=== PATIENT | female | born 1995 | race Caucasian/White ===

== ENCOUNTER 2016-07-09 02:17 | Emergency (ER) | payer BC | END 2016-07-09 05:00 | disposition left against medical advice (07) | LOC: ER1 02:17 | DX: Z53.21 Procedure and treatment not carried out due to patient leaving prior to being seen by health care provider (principal) | CPT/HCPCS: 81001; 84703 ==

== ENCOUNTER → 2020-11-18 | Outpatient (CLI) | payer BC, OTHER ==
[~2020-11-18] MED LIST: COLACE 100MG C100 MG PO; DICLOXACILLIN500 MG PO; PRENATAL VITAM1 EAC8 PO
== END ==
LOC: US 08:00
DX: R10.11 Right upper quadrant pain (principal); K76.0 Fatty (change of) liver, not elsewhere classified
CPT/HCPCS: 76705